=== PATIENT | female | born 1970 | race Caucasian/White ===

== ENCOUNTER 2021-12-22 02:07 | Emergency (ER) | payer OTHER ==
[~2021-12-22 02:07] MED LIST: BENTYL 20MG TAB20 MG PO; ZOFRAN ODT 4 MG4 MG PO
[2021-12-22 02:40] LABS: HEMOGLOBIN 12.4 gm/dl (12.3-15.3); RED BLOOD COUNT 4.21 M/UL (4.00-5.10); WHITE BLOOD COUNT 15.2 K/UL (4.5-11.0)
[2021-12-22 03:02] LABS: BUN/CREATININE RATIO 25 (0-10)
== END 2021-12-22 06:40 | disposition short-term general hospital (02) ==
LOC: ER1 02:07
PROVIDERS: Student in an Organized Health Care Education/Training Program
DX: J96.91 Respiratory failure, unspecified with hypoxia (principal); J18.9 Pneumonia, unspecified organism; G93.40 Encephalopathy, unspecified; E11.9 Type 2 diabetes mellitus without complications; M06.9 Rheumatoid arthritis, unspecified; Z20.822 Contact with and (suspected) exposure to COVID-19
CPT/HCPCS: 0240U; 36600; 70450; 70496; 70498; 71045; 80053; 81001; 82140; 82550; 82553; 82803; 83605; 83880; 84439; 84443; 84484; 85025; 87040; 87086; 93005; 96374; 96375; 99285; J0696; J1885; Q9967